=== PATIENT | male | born 1985 | race Hispanic/Latino ===

== ENCOUNTER 2018-06-13 18:19 | Emergency (ER) | payer OTHER ==
[2018-06-13] MEDS ORDERED: KETOROLAC TROMETHAMINE 30MG/ML ONE (19:10)
[2018-06-13 19:24] LABS: APPEARANCE,URINE Clear (CLEAR); BILIRUBIN,URINE Negative (NEGATIVE); COLOR,URINE Yellow (YELLOW); GLUCOSE, URINE (UA) Negative (NEGATIVE); KETONES,URINE Trace mg/dL (NEGATIVE); LEUKOCYTE ESTERASE ,URINE Negative (NEGATIVE); NITRATE,URINE Negative (NEGATIVE); OCCULT BLOOD,URINE Large (NEGATIVE); PH,URINE 5.5 (5.0-8.0); PROTEIN,URINE Negative (NEGATIVE)
[2018-06-13 19:34] LABS: BACTERIA,URINE Rare /HPF (None Seen); MUCUS,URINE Few LPF (None Seen); SQUAMOUS EPITHELIAL CELL,UR Rare /HPF (0-2); WBC,URINE 0-1 /HPF (0-1)
[2018-06-13 19:37] LABS: BASOPHILS % (AUTO) 0.8 % (0.0-5.0); EOSINOPHILS % (AUTO) 1.8 % (0.0-8.0); HEMATOCRIT 45.3 % (42-54); LYMPHOCYTES % (AUTO) 35.9 % (21.0-51.0); MEAN CORPUSCULAR HEMOGLOBIN 28.3 pg (27.0-33.0); MEAN CORPUSCULAR HGB CONC 34.2 g/dL (32.0-36.0); MEAN CORPUSCULAR VOLUME 82.6 fL (79-99); MONOCYTES % (AUTO) 9.1 % (3.0-13.0); NEUTROPHILS % (AUTO) 52.4 % (40.0-77.0); NUCLEATED RED BLOOD CELLS 0.1 % (0.0-0.19); PLATELET COUNT (AUTO) 257 K/uL (130-400); RED BLOOD CELL COUNT(AUTO) 5.48 MIL/uL (4.50-6.20); RED CELL DISTRIBUTION WIDTH 13.7 % (11.0-15.5); WHITE BLOOD COUNT (AUTO) 7.8 K/uL (4.8-10.8)
[2018-06-13 21:04] LABS: CREATININE 1.1 mg/dL (0.5-1.5); POTASSIUM 4.2 mmol/L (3.5-5.1)
== END 2018-06-13 21:30 | disposition home or self-care (01) ==
LOC: EDH 18:19
DX: N13.2 Hydronephrosis with renal and ureteral calculous obstruction (principal)
CPT/HCPCS: 36415; 74176; 80048; 81001; 85025; 96374; 99285; J1885

== ENCOUNTER 2019-04-23 08:56 | Emergency (ER) | payer OTHER | END 2019-04-23 10:41 | disposition home or self-care (01) | LOC: EDH 08:56 | DX: S82.891A Other fracture of right lower leg, initial encounter for closed fracture (principal); Z87.891 Personal history of nicotine dependence; Z98.890 Other specified postprocedural states; X58.XXXA Exposure to other specified factors, initial encounter; Y93.89 Activity, other specified; Y92.009 Unspecified place in unspecified non-institutional (private) residence as the place of occurrence of the external cause; Y99.8 Other external cause status | CPT/HCPCS: 29515; 73610 ==

== ENCOUNTER 2024-06-24 10:07 | Emergency (ER) | payer OTHER ==
[~2024-06-24] VITALS: Ht 180.3 cm; Wt 163.3 kg
[2024-06-24 10:07] VITALS: BP 155/106; PULSE 95; RESP 18; TEMP 98
--- NOTE | 2024-06-24 10:43 | ERN ---
ED Note History of Present Illness Stated Complaint: LEFT GROIN ABCESS 4 DAYS Chief Complaint: Abscess Time Seen by MD: 10:13 Dictation: 39-year-old male presents to the ED for evaluation of recurring groin abscess worsening 4 days ago. Patient reports abscess has been getting bigger than usual, but denies any discharge, fever or any other associated symptoms at this time. Patient states he usually uses a healing pad and antibiotic ointment when he gets the abscess. Home Meds Active Scripts Amoxicillin/Potassium Clav (Amox Tr-K Clv 875-125 mg Tab) 875 Mg-125 Mg Tablet, 1 TAB PO BID for 10 Days, #20 TAB 0 Refills Prov:RICHIE FAJARDO DO 06/24/24 Past Medical History Past Medical History: Other Additional Past Medical Hx: REOCCURING LEFT GROIN ABCESS Surgical History: None Review of System Dictation Constitutional: Negative for fever,chills, and weight loss Eyes: Negative for injury, pain,redness, and discharge ENT: Negative for injury,pain or swelling Cardiovascular: Negative for chest pain, palpitations, and edema Respiratory: Negative for shortness of breath, cough, and wheezing, Abdomen/GI: Negative for abdominal pain, nausea, vomiting, diarrhea, and constipation Back: Negative for injury and pain : Left groin abscess Negative for injury, bleeding and discharge MS/Extremity: Negative for injury and deformity Skin: Negative for rash, and discoloration Neuro: Negative for headache, weakness, numbness, tingling, and seizure Psych: Negative for suicide ideation, homicidal ideation, and hallucinations Initial Vital Sign VS Vital Signs Date Time Temp Pulse Resp B/P (MAP) Pulse Ox O2 Delivery O2 Flow Rate FiO2 06/24/24 10:07 98.1 95 18 155/106 96 Room Air 0 Physical Exam Dictation General: awake, alert, NAD Head/Face: Normocephalic, atraumatic Eyes: PERRL, EOMI, vision at baseline ENT: oral cavity clear, TMs clear, no signs of infection Neck: Trachea midline, supple, no nuchal rigidity Cardiovascular: RRR, normal S1/S2, No MRGs, no JVD Respiratory: CTAB, no respiratory distress, No rales or wheezes Abdomen: Soft, non-tender, non-distended, normal bowel sounds, no guarding or rebound. : Left inguinal crease 2 in abscess, indurated, soft Skin: Warm, dry, normal turgor, no rash MS/Extremity: Pulses equal, no cyanosis, neurovascular intact, FROM Neuro: COAx4, GCS 15, strength 5/5, CN 2-12 intact, normal cerebellar exam, normal gait, Psych: Normal behavior, mood, and affect normal ED Course ED Course Orders Procedure Category Date Status Time Us Scrotum & Contents US 06/24/24 Resulted 10:34 Lidocaine Hcl 1% 20ml PHA 06/24/24 Complete Vial (Lidocaine Hc 12:00 Current Medications Medications (Trade) Dose Ordered Sig/Jessie Route PRN Reason Start Time Stop Time Status Last Admin Dose Admin Lidocaine HCl (Lidocaine HCl 1% 20ml Vial) 10 ml ONCE INJ 06/24/24 12:00 06/24/24 12:24 DC Vital Signs Date Time Temp Pulse Resp B/P (MAP) Pulse Ox O2 Delivery O2 Flow Rate FiO2 06/24/24 10:07 98.1 95 18 155/106 96 Room Air 0 Medical Decision Making MDM MDM: Differential diagnosis: Groin abscess, testicular abscess, cellulitis Previous outside records reviewed: Old ER visits. Need for hospitalization: Patient does not meet criteria for hospitalization. Need for emergency major/minor surgery: No Patient's prior external medical records from other ER visits were reviewed by me as indicated. Prior testing and results from previous visits were reviewed. Prior tests were taken into account with medical decision making and resource utilization, independent historian/historians were used to obtain complete medical history. I independently interpreted the test that were performed, results were reviewed by me and considered findings on radiology if ordered. Medical management and examination interpretation discussions were had by me with other qualified healthcare professionals as indicated for the patient's care. US scrotum shows superficial abscess per my independent interpretation. VSS I&D performed. Drained. Will DC w/ abx and recommend PCP f/u. Procedure Blade Size: 11 I & D Procedure: no betadine prep Progress Start time 11:45. Left inguinal area 2 in abscess indurated, 0.5 cm incision with purulent drainage. 2 mL of 1% lidocaine. Patient tolerated procedure well. Total procedure time 10 minutes DX & DISP Disposition: Discharge Departure Impression: Primary Impression: Abscess of scrotal wall Condition: Stable Scripts Amoxicillin/Potassium Clav (Amox Tr-K Clv 875-125 mg Tab) 875 Mg-125 Mg Tablet 1 TAB PO BID for 10 Days, #20 TAB 0 Refills Prov: RICHIE FAJARDO DO 06/24/24 Additional Instructions: You had a abscess on the left side of his scrotum. It was drained here in the ER. As we discussed, keep the wound clean with soap and water. I recommend that you take a bath this afternoon and again tonight. Keep the incision covered with a Band-Aid. I have prescribed Augmentin, which is an antibiotic. Please take as prescribed. Please follow up with your doctor in 48 hours for a recheck. Return to the emergency department sooner if you have any concerns. Referrals: SELF,REFERRAL (PCP) I have reviewed, & agreed with my scribe's, documentation. (Entered by Tressa Mendez, acting as a scribe for Dr. Fajardo) I personally scribed for RICHIE FAJARDO DO ([email or web address]) on 06/24/24 at 10:43. Electronically submitted by Tressa Mendez ([email or web address]). I personally scribed for RICHIE FAJARDO DO ([email or web address]) on 06/24/24 at 12:00. Electronically submitted by Tressa Mendez ([email or web address]). RICHIE FAJARDO DO Jun 24, 2024 10:43
[2024-06-24] MEDS: LIDOCAINE HCL 1% 20 ML VIAL INJ SCH (12:00)
[2024-06-24] MEDS ORDERED: AMOX1TAB16 PO (12:16)
--- NOTE | 2024-06-24 12:26 | HMCIMG ---
US SCROTUM & CONTENTS HISTORY: abscess TECHNIQUE: US SCROTUM & CONTENTS. B mode, color flow and spectral analysis was performed. FINDINGS: RIGHT TESTICLE: measures 5.4 cm. Vascular flow is seen. No evidence of hydrocele or varicocele. The epididymis demonstrates echogenicity within normal limits. LEFT TESTICLE: measures 4.7 cm. Vascular flow is seen. No evidence of hydrocele or varicocele. Bilateral scrotal wall edema is seen. Complex structure seen in the left groin measuring 4.4 x 1.5 x 3.1 cm with surrounding vascularity concerning for developing abscess. Correlate clinically. IMPRESSION: Vascular flow was seen in both testicles at this time. Bilateral scrotal wall edema is seen. Complex structure seen in the left groin measuring 4.4 x 1.5 x 3.1 cm with surrounding vascularity concerning for abscess. Correlate clinically.
== END 2024-06-24 12:24 | disposition home or self-care (01) ==
LOC: EDH 10:07
DX: N49.2 Inflammatory disorders of scrotum (principal); Z79.899 Other long term (current) drug therapy
CPT/HCPCS: 55100; 76870; 99284